=== PATIENT | female | born 1955 | race Caucasian/White ===

== ENCOUNTER 2019-06-22 07:31 | Outpatient (RCR) | payer SELFPAY | END 2020-01-13 14:25 | disposition home or self-care (01) | LOC: ANHCPRIII 07:31 | PROVIDERS: PCP Nurse Practitioner Adult Health; Visit Provider Family Medicine | DX: J44.9 Chronic obstructive pulmonary disease, unspecified (principal) | CPT/HCPCS: 99199 ==